=== PATIENT | female | born 1960 | race Caucasian/White ===

== ENCOUNTER 2019-05-26 13:31 | Inpatient (IN) ==
[2019-05-26 15:44] LABS: Bilirubin,Urine Negative (Negative); Blood,Urine Negative (Negative); Clarity,Urine Clear (Clear); Color,Urine Yellow (Yellow); Glucose,Urine (UA) Normal (Normal); Ketones,Urine Negative (Negative); Leukocyte Esterase,Urine Negative (Negative); Nitrite,Urine Negative (Negative); PH,Urine 5.5 pH Units (5.0-8.0); Protein,Urine Negative (Neg-Trace); Specific Gravity,Urine 1.015 (1.010-1.025); Urobilinogen,Urine Normal (Normal)
[2019-05-26 16:19] LABS: Basophils # 0.1 K/mcL (0.0-0.2); Basophils % 1.1 %; Eosinophils # 0.1 K/mcL (0.0-0.6); Eosinophils % 0.6 %; Hematocrit 38.8 % (35.3-44.9); Hemoglobin 13.1 g/dL (11.5-15.4); Immature Granulocytes % 0.8 % (0-4); Lymphocytes # 1.3 K/mcL (0.6-4.6); Lymphocytes % 14.2 %; Mean Corpuscular HGB Conc 33.8 g/dL (31.6-35.5); Mean Corpuscular Hemoglobin 33.5 pg (28.0-33.3); Mean Corpuscular Volume 99.2 fL (83.0-100.0); Mean Platelet Volume 9.4 fL (9.4-12.4); Monocytes # 0.9 K/mcL (0.0-1.3); Monocytes % 9.9 %; Neutrophils # 6.4 K/mcL (1.6-8.9); Platelet Count 224 K/mcL (140-400); Red Blood Count 3.91 M/mcL (3.82-4.97); Red Cell Distribution Width 12.1 % (11.5-14.5); Segmented Neutrophils % 73.4 %; White Blood Count 8.8 K/mcL (4.3-11.1)
[2019-05-26 16:40] LABS: Calcium 9.8 mg/dL (8.6-10.3)
[2019-05-26] MEDS ORDERED: Calcium Gluconate 1,000 MG/10 ML VIAL IVP STA (17:10)
[2019-05-26] MEDS ORDERED: Calcium Gluconate 1gm/50mL 1 GM/50 ML BAG IVPB ONE (17:16)
[2019-05-26] MEDS ORDERED: 0.9 % Sodium Chloride 1,000 ML IVC ONE (17:59)
[2019-05-26] MEDS ORDERED: *HR* Promethazine 25 MG/ML VIAL IVP ONE (19:06)
[2019-05-26 19:15] LABS: Albumin 4.2 g/dL (3.5-5.7); Albumin/Globulin Ratio 1.2 (1.1-2.2); Bilirubin,Direct 0.5 mg/dL (0.0-0.2); Bilirubin,Indirect 0.9 mg/dL (0.0-1.0); Bilirubin,Total 1.4 mg/dL (0.3-1.0); Globulin 3.6 g/dL (2.4-3.5); Total Protein 7.8 g/dL (6.4-8.9)
[2019-05-26] MEDS ORDERED: Naloxone 0.4 MG/ML INJ IVP PRN (19:55)
[2019-05-26] MEDS ORDERED: *HR* Promethazine 25 MG/ML VIAL IVP PRN (19:55)
[2019-05-26] MEDS ORDERED: Bumetanide 1 MG TABLET PO SCH (20:00)
[2019-05-26] MEDS ORDERED: 0.9 % Sodium Chloride 1,000 ML IVC SCH (20:00)
[2019-05-26] MEDS ORDERED: Dextrose Gel 15 GM/37.5 ML TUBE PO PRN ×2 (20:04)
[2019-05-26] MEDS ORDERED: *HR* Dextrose 50 % in Water (Syg) 50 ML SYRINGE IVP PRN (20:04)
[2019-05-26] MEDS ORDERED: D5% in Water 1,000 ML IVC PRN (20:04)
[2019-05-26] MEDS: Insulin LISPRO 300 UNITS/3 ML VIAL SQ SCH (21:22)
[2019-05-26] MEDS: FluocinoNIDE 0.05% CRM 15 GM TUBE TP SCH (22:03)
[2019-05-26] MEDS: *HR* Heparin 5,000 UNIT/ML VIAL SQ SCH (22:05)
[2019-05-26 23:35] LABS: Calcium 9.7 mg/dL (8.6-10.3); Potassium 5.1 mEq/L (3.5-5.1)
[2019-05-27] MEDS: *HR* Heparin 5,000 UNIT/ML VIAL SQ SCH ×2 (04:14→16:45)
[2019-05-27 06:35] LABS: Basophils # 0.1 K/mcL (0.0-0.2); Basophils % 0.6 %; Eosinophils # 0.1 K/mcL (0.0-0.6); Eosinophils % 1.4 %; Immature Granulocytes % 0.5 % (0-4); Lymphocytes # 1.5 K/mcL (0.6-4.6); Lymphocytes % 19.8 %; Mean Corpuscular HGB Conc 32.9 g/dL (31.6-35.5); Mean Corpuscular Hemoglobin 33.5 pg (28.0-33.3); Mean Corpuscular Volume 101.8 fL (83.0-100.0); Mean Platelet Volume 9.7 fL (9.4-12.4); Monocytes # 1.1 K/mcL (0.0-1.3); Monocytes % 14.6 %; Neutrophils # 4.9 K/mcL (1.6-8.9); Platelet Count 161 K/mcL (140-400); Red Blood Count 3.34 M/mcL (3.82-4.97); Red Cell Distribution Width 12.1 % (11.5-14.5); Segmented Neutrophils % 63.1 %; White Blood Count 7.7 K/mcL (4.3-11.1)
[2019-05-27 06:36] LABS: Hemoglobin 11.2 g/dL (11.5-15.4)
[2019-05-27 06:57] LABS: Albumin 3.4 g/dL (3.5-5.7); Albumin/Globulin Ratio 1.2 (1.1-2.2); Bilirubin,Total 1.2 mg/dL (0.3-1.0); Globulin 2.9 g/dL (2.4-3.5); INR 1.1; Magnesium 1.9 mg/dL (1.6-2.6); Potassium 4.1 mEq/L (3.5-5.1); Prothrombin Time 12.7 Seconds (9.4-12.1); Total Protein 6.3 g/dL (6.4-8.9)
[2019-05-27 06:59] LABS: Activated Partial Thrombo Time 28.6 Seconds (26.0-36.0)
[2019-05-27] MEDS: Insulin LISPRO 300 UNITS/3 ML VIAL SQ SCH ×3 (07:25→16:44)
[2019-05-27] MEDS: Aspirin Enteric Coated 81 MG Tablet PO SCH (08:08)
[2019-05-27] MEDS: FluocinoNIDE 0.05% CRM 15 GM TUBE TP SCH ×2 (08:12→19:41)
[2019-05-27] MEDS: Thiamine (B-1) 100 MG TABLET PO SCH (11:04)
[2019-05-27] MEDS: Multivit/Ca/Min/Fe/FA 1 TAB TABLET PO SCH (11:04)
[2019-05-27] MEDS: Folic Acid 1 MG TABLET PO SCH (11:04)
[2019-05-27] MEDS: 0.9 % Sodium Chloride 1,000 ML IVC SCH ×2 (11:33→19:43)
[2019-05-27] MEDS ORDERED: Thiamine (B-1) 100 MG, Folic Acid 1 MG, MVI, adult with vitamin K 10 ML in 0.9 % Sodi... IVPB SCH (18:00)
[2019-05-28] MEDS: *HR* Heparin 5,000 UNIT/ML VIAL SQ SCH (03:55)
[2019-05-28 05:25] LABS: % Iron Saturation 10 % (15-50); Iron 28 mcg/dL (50-170); Transferrin 195 mg/dL (203-362)
[2019-05-28 05:26] LABS: Albumin 3.3 g/dL (3.5-5.7); Calcium 8.8 mg/dL (8.6-10.3); Magnesium 1.6 mg/dL (1.6-2.6); Phosphorous 3.7 mg/dL (2.7-4.5); Potassium 4.2 mEq/L (3.5-5.1)
[2019-05-28 05:49] LABS: Folate 15.6 ng/mL (3.0-16.0)
[2019-05-28] MEDS: Insulin LISPRO 300 UNITS/3 ML VIAL SQ SCH ×2 (08:02→12:12)
[2019-05-28] MEDS: Thiamine (B-1) 100 MG TABLET PO SCH (08:06)
[2019-05-28] MEDS: Multivit/Ca/Min/Fe/FA 1 TAB TABLET PO SCH (08:06)
[2019-05-28] MEDS: FluocinoNIDE 0.05% CRM 15 GM TUBE TP SCH (08:07)
[2019-05-28] MEDS: Folic Acid 1 MG TABLET PO SCH (08:07)
[2019-05-28] MEDS: Aspirin Enteric Coated 81 MG Tablet PO SCH (08:07)
[2019-05-28] MEDS ORDERED: 0.9 % Sodium Chloride 1,000 ML IVC SCH (08:15)
[2019-05-28 12:00] VITALS: BP 142/81
[2019-05-30 09:26] LABS: Serine Protease-3 Antibody 0 AU/mL (0-19)
[2019-05-31 13:11] LABS: ANA HEp-2 IgG IFA <1:80 (<1:80)
[2019-06-01 00:14] LABS: APTT (LE Anticoag) 37 sec (32-48); Diluted Russell Viper Venom 33 sec (33-44); PT (LE-Anticoag) 14.2 sec (12.0-15.5)
== END 2019-05-28 13:08 | disposition home or self-care (01) | DRG 683 ==
LOC: EMEROOARM 13:31 → 2ANU 13:31
PROVIDERS: ADMIT Student in an Organized Health Care Education/Training Program; ATTEND Student in an Organized Health Care Education/Training Program

== ENCOUNTER 2019-07-22 09:35 | Inpatient (IN) ==
[2019-07-22 09:56] LABS: Bilirubin,Urine Negative (Negative); Blood,Urine Negative (Negative); Clarity,Urine Clear (Clear); Color,Urine Yellow (Yellow); Glucose,Urine (UA) Normal (Normal); Ketones,Urine Negative (Negative); Leukocyte Esterase,Urine Negative (Negative); Nitrite,Urine Negative (Negative); Protein,Urine Negative (Neg-Trace); Urobilinogen,Urine Normal (Normal)
[2019-07-22 10:18] LABS: Basophils # 0.2 K/mcL (0.0-0.2); Basophils % 1.8 %; Eosinophils # 0.2 K/mcL (0.0-0.6); Eosinophils % 2.8 %; Hematocrit 32.1 % (35.3-44.9); Hemoglobin 10.6 g/dL (11.5-15.4); Immature Granulocytes % 0.7 % (0-4); Lymphocytes # 2.4 K/mcL (0.6-4.6); Lymphocytes % 27.9 %; Mean Platelet Volume 8.5 fL (9.4-12.4); Monocytes # 0.9 K/mcL (0.0-1.3); Monocytes % 10.8 %; Neutrophils # 4.7 K/mcL (1.6-8.9); Platelet Count 206 K/mcL (140-400); Red Blood Count 3.31 M/mcL (3.82-4.97); Red Cell Distribution Width 14.5 % (11.5-14.5); White Blood Count 8.5 K/mcL (4.3-11.1)
[2019-07-22 10:40] LABS: Alanine Aminotransferase 30 Units/L (7-52); Albumin 2.7 g/dL (3.5-5.7); Albumin/Globulin Ratio 0.8 (1.1-2.2); Alkaline Phosphatase 97 Units/L (34-104); Aspartate Amino Transferase 103 Units/L (13-39); BUN/Creatinine Ratio 17 (6-26); Bilirubin,Total 1.3 mg/dL (0.3-1.0); Blood Urea Nitrogen 19 mg/dL (6-20); Calcium 7.6 mg/dL (8.6-10.3); Carbon Dioxide 27 mEq/L (23-29); Chloride 95 mEq/L (98-107); Globulin 3.6 g/dL (2.4-3.5); Glucose 164 mg/dL (70-105); Osmolality,Calculated 282 (280-300); Potassium 4.1 mEq/L (3.5-5.1); Sodium 133 mEq/L (136-145); Total Protein 6.3 g/dL (6.4-8.9); eGFR For African Americans > 60 (> 60); eGFR For Non-African Americans 50 (> 60)
[2019-07-22 10:42] LABS: Troponin I 0.17 ng/mL (< 0.04)
[2019-07-22] MEDS ORDERED: Aspirin 325 MG TABLET PO ONE (10:44)
[2019-07-22] MEDS ORDERED: Furosemide 40 MG/4 ML VIAL IVP ONE (10:50)
[2019-07-22] MEDS ORDERED: *HR* Heparin 5,000 UNIT/ML VIAL IVP PRN ×2 (11:03)
[2019-07-22] MEDS ORDERED: *HR* Heparin 5,000 UNIT/ML VIAL IVP ONE (11:03)
[2019-07-22] MEDS: Heparin 25,000 UNIT/250 ML D5W 25,000 UNIT/250 ML IV.SOLN IVC SCH (11:22)
[2019-07-22] MEDS ORDERED: Ondansetron 4 MG/2 ML VIAL IVP PRN (11:33)
[2019-07-22] MEDS ORDERED: Naloxone 0.4 MG/ML INJ IVP PRN (11:33)
[2019-07-22] MEDS ORDERED: Dextrose Gel 15 GM/37.5 ML TUBE PO PRN ×2 (11:38)
[2019-07-22] MEDS ORDERED: D5% in Water 1,000 ML IVC PRN (11:38)
[2019-07-22] MEDS ORDERED: *HR* Dextrose 50 % in Water (Syg) 50 ML SYRINGE IVP PRN (11:38)
[2019-07-22 11:40] LABS: Hematocrit 33.9 % (35.3-44.9); Mean Corpuscular HGB Conc 32.4 g/dL (31.6-35.5); Mean Corpuscular Hemoglobin 31.5 pg (28.0-33.3); Mean Corpuscular Volume 97.1 fL (83.0-100.0); Mean Platelet Volume 8.5 fL (9.4-12.4); Platelet Count 206 K/mcL (140-400); Red Blood Count 3.49 M/mcL (3.82-4.97); Red Cell Distribution Width 14.5 % (11.5-14.5)
[2019-07-22 11:44] LABS: Heparin anti-factor XA UFH < 0.04 IU/mL (0.30-0.70); INR 1.2; Prothrombin Time 14.1 Seconds (9.4-12.1)
[2019-07-22 11:47] LABS: Activated Partial Thrombo Time 30.8 Seconds (26.0-36.0)
[2019-07-22] MEDS: metOLazone 5 MG TABLET PO SCH (14:21)
[2019-07-22] MEDS: Insulin LISPRO 300 UNITS/3 ML VIAL SQ SCH ×2 (16:04→21:32)
[2019-07-22] MEDS: atenoloL 50 MG TABLET PO SCH (16:58)
[2019-07-22] MEDS ORDERED: Aspirin Enteric Coated 81 MG Tablet PO SCH (18:00)
[2019-07-22] MEDS: Furosemide 40 MG/4 ML VIAL IVP SCH (22:28)
[2019-07-22] MEDS: Insulin DETEMIR 100 UNIT/ML X5UNITS SQ SCH (22:32)
[2019-07-22] MEDS: hydrALAZINE 25 MG TABLET PO SCH (22:33)
[2019-07-23 01:06] LABS: Hematocrit 31.6 % (35.3-44.9); Hemoglobin 10.6 g/dL (11.5-15.4); Mean Corpuscular HGB Conc 33.5 g/dL (31.6-35.5); Mean Corpuscular Hemoglobin 32.5 pg (28.0-33.3); Mean Corpuscular Volume 96.9 fL (83.0-100.0); Mean Platelet Volume 8.8 fL (9.4-12.4); Platelet Count 203 K/mcL (140-400); Red Blood Count 3.26 M/mcL (3.82-4.97); Red Cell Distribution Width 14.7 % (11.5-14.5); White Blood Count 9.5 K/mcL (4.3-11.1)
[2019-07-23 01:11] LABS: INR 1.3; Prothrombin Time 14.7 Seconds (9.4-12.1)
[2019-07-23 01:23] LABS: BUN/Creatinine Ratio 16 (6-26); Blood Urea Nitrogen 17 mg/dL (6-20); Calcium 7.9 mg/dL (8.6-10.3); Carbon Dioxide 28 mEq/L (23-29); Chloride 97 mEq/L (98-107); Glucose 113 mg/dL (70-105); Magnesium 1.5 mg/dL (1.6-2.6); Osmolality,Calculated 282 (280-300); Potassium 3.7 mEq/L (3.5-5.1); Sodium 135 mEq/L (136-145); eGFR For African Americans > 60 (> 60); eGFR For Non-African Americans 54 (> 60)
[2019-07-23] MEDS: Insulin LISPRO 300 UNITS/3 ML VIAL SQ SCH ×4 (08:21→20:30)
[2019-07-23] MEDS: hydrALAZINE 25 MG TABLET PO SCH ×2 (08:23→20:39)
[2019-07-23] MEDS ORDERED: Fluticasone Propionate Nasal 50 MCG/SPRAY BOTTLE NS PRN (08:59)
[2019-07-23] MEDS: Furosemide 40 MG/4 ML VIAL IVP SCH ×2 (09:29→20:39)
[2019-07-23] MEDS: metOLazone 5 MG TABLET PO SCH (11:28)
[2019-07-23 16:19] LABS: BUN/Creatinine Ratio 14 (6-26); Blood Urea Nitrogen 15 mg/dL (6-20); Calcium 8.1 mg/dL (8.6-10.3); Carbon Dioxide 32 mEq/L (23-29); Chloride 98 mEq/L (98-107); Glucose 138 mg/dL (70-105); Osmolality,Calculated 285 (280-300); Potassium 3.6 mEq/L (3.5-5.1); Sodium 136 mEq/L (136-145); eGFR For African Americans > 60 (> 60); eGFR For Non-African Americans 54 (> 60)
[2019-07-23] MEDS: atenoloL 50 MG TABLET PO SCH (16:45)
[2019-07-23] MEDS: Aspirin Enteric Coated 81 MG Tablet PO SCH (16:45)
[2019-07-23] MEDS: *HR* Heparin 5,000 UNIT/ML VIAL SQ SCH (16:46)
[2019-07-23] MEDS: Insulin DETEMIR 100 UNIT/ML X5UNITS SQ SCH (20:52)
[2019-07-23 23:12] LABS: Calcium 8.5 mg/dL (8.6-10.3); Potassium 3.8 mEq/L (3.5-5.1)
[2019-07-24 04:31] LABS: Basophils # 0.1 K/mcL (0.0-0.2); Eosinophils # 0.2 K/mcL (0.0-0.6); Eosinophils % 2.5 %; Hematocrit 29.8 % (35.3-44.9); Hemoglobin 9.7 g/dL (11.5-15.4); Immature Granulocytes % 0.9 % (0-4); Lymphocytes # 1.7 K/mcL (0.6-4.6); Lymphocytes % 24.9 %; Mean Corpuscular HGB Conc 32.6 g/dL (31.6-35.5); Mean Corpuscular Hemoglobin 32.2 pg (28.0-33.3); Mean Platelet Volume 8.7 fL (9.4-12.4); Monocytes # 1.1 K/mcL (0.0-1.3); Monocytes % 15.7 %; Neutrophils # 3.7 K/mcL (1.6-8.9); Platelet Count 130 K/mcL (140-400); Red Blood Count 3.01 M/mcL (3.82-4.97); White Blood Count 6.8 K/mcL (4.3-11.1)
[2019-07-24 05:03] LABS: BUN/Creatinine Ratio 15 (6-26); Blood Urea Nitrogen 15 mg/dL (6-20); Calcium 7.9 mg/dL (8.6-10.3); Carbon Dioxide 28 mEq/L (23-29); Chloride 99 mEq/L (98-107); Glucose 135 mg/dL (70-105); Magnesium 1.5 mg/dL (1.6-2.6); Osmolality,Calculated 285 (280-300); Phosphorous 2.9 mg/dL (2.7-4.5); Potassium 3.4 mEq/L (3.5-5.1); Sodium 136 mEq/L (136-145); Troponin I 0.08 ng/mL (< 0.04); eGFR For African Americans > 60 (> 60); eGFR For Non-African Americans 56 (> 60)
[2019-07-24] MEDS: *HR* Heparin 5,000 UNIT/ML VIAL SQ SCH ×2 (05:25→17:16)
[2019-07-24] MEDS: metOLazone 5 MG TABLET PO SCH (07:33)
[2019-07-24] MEDS: Insulin LISPRO 300 UNITS/3 ML VIAL SQ SCH ×4 (07:33→20:16)
[2019-07-24] MEDS ORDERED: metOLazone 5 MG TABLET PO SCH (08:00)
[2019-07-24] MEDS: Heparin 25,000 UNIT/250 ML D5W 25,000 UNIT/250 ML IV.SOLN IVC SCH (08:13)
[2019-07-24] MEDS: Furosemide 40 MG/4 ML VIAL IVP SCH ×2 (08:37→20:15)
[2019-07-24] MEDS: hydrALAZINE 25 MG TABLET PO SCH ×2 (08:38→20:15)
[2019-07-24 12:21] LABS: Alanine Aminotransferase 24 Units/L (7-52); Albumin 2.4 g/dL (3.5-5.7); Albumin/Globulin Ratio 0.8 (1.1-2.2); Alkaline Phosphatase 82 Units/L (34-104); Aspartate Amino Transferase 60 Units/L (13-39); Bilirubin,Direct 0.4 mg/dL (0.0-0.2); Bilirubin,Indirect 0.8 mg/dL (0.0-1.0); Bilirubin,Total 1.2 mg/dL (0.3-1.0); Globulin 3.2 g/dL (2.4-3.5); Total Protein 5.6 g/dL (6.4-8.9)
[2019-07-24] MEDS: atenoloL 50 MG TABLET PO SCH (17:16)
[2019-07-24] MEDS: Aspirin Enteric Coated 81 MG Tablet PO SCH (17:17)
[2019-07-24] MEDS: Insulin DETEMIR 100 UNIT/ML X5UNITS SQ SCH (20:30)
[2019-07-25 02:13] LABS: Basophils # 0.2 K/mcL (0.0-0.2); Basophils % 2.3 %; Eosinophils # 0.3 K/mcL (0.0-0.6); Eosinophils % 3.3 %; Hematocrit 30.7 % (35.3-44.9); Hemoglobin 9.6 g/dL (11.5-15.4); Immature Granulocytes % 1.1 % (0-4); Lymphocytes # 2.3 K/mcL (0.6-4.6); Lymphocytes % 30.9 %; Mean Corpuscular HGB Conc 31.3 g/dL (31.6-35.5); Mean Platelet Volume 8.9 fL (9.4-12.4); Monocytes # 1.2 K/mcL (0.0-1.3); Monocytes % 15.9 %; Neutrophils # 3.5 K/mcL (1.6-8.9); Platelet Count 139 K/mcL (140-400); Red Cell Distribution Width 15.2 % (11.5-14.5); Segmented Neutrophils % 46.5 %; White Blood Count 7.6 K/mcL (4.3-11.1)
[2019-07-25 02:33] LABS: Alanine Aminotransferase 23 Units/L (7-52); Albumin 2.5 g/dL (3.5-5.7); Albumin/Globulin Ratio 0.8 (1.1-2.2); Alkaline Phosphatase 86 Units/L (34-104); Aspartate Amino Transferase 50 Units/L (13-39); BUN/Creatinine Ratio 14 (6-26); Bilirubin,Total 1.2 mg/dL (0.3-1.0); Blood Urea Nitrogen 14 mg/dL (6-20); Calcium 8.5 mg/dL (8.6-10.3); Carbon Dioxide 27 mEq/L (23-29); Chloride 101 mEq/L (98-107); Globulin 3.2 g/dL (2.4-3.5); Glucose 66 mg/dL (70-105); Magnesium 1.7 mg/dL (1.6-2.6); Osmolality,Calculated 279 (280-300); Phosphorous 2.7 mg/dL (2.7-4.5); Potassium 3.6 mEq/L (3.5-5.1); Sodium 135 mEq/L (136-145); Total Protein 5.7 g/dL (6.4-8.9); eGFR For African Americans > 60 (> 60); eGFR For Non-African Americans 55 (> 60)
[2019-07-25] MEDS: *HR* Heparin 5,000 UNIT/ML VIAL SQ SCH ×2 (05:15→17:55)
[2019-07-25] MEDS: metOLazone 5 MG TABLET PO SCH (09:18)
[2019-07-25] MEDS: Insulin LISPRO 300 UNITS/3 ML VIAL SQ SCH ×4 (10:18→20:41)
[2019-07-25] MEDS: hydrALAZINE 25 MG TABLET PO SCH ×2 (10:19→20:35)
[2019-07-25] MEDS: Furosemide 40 MG/4 ML VIAL IVP SCH ×2 (10:36→20:36)
[2019-07-25] MEDS: atenoloL 50 MG TABLET PO SCH (17:54)
[2019-07-25] MEDS: Aspirin Enteric Coated 81 MG Tablet PO SCH (17:54)
[2019-07-25] MEDS: Insulin DETEMIR 100 UNIT/ML X5UNITS SQ SCH (20:36)
[2019-07-26] MEDS: *HR* Heparin 5,000 UNIT/ML VIAL SQ SCH ×2 (05:47→17:48)
[2019-07-26 05:50] LABS: Hematocrit 30.7 % (35.3-44.9); Hemoglobin 9.9 g/dL (11.5-15.4); Mean Corpuscular HGB Conc 32.2 g/dL (31.6-35.5); Mean Corpuscular Hemoglobin 32.2 pg (28.0-33.3); Mean Platelet Volume 9.1 fL (9.4-12.4); Platelet Count 141 K/mcL (140-400); Red Blood Count 3.07 M/mcL (3.82-4.97); Red Cell Distribution Width 15.6 % (11.5-14.5)
[2019-07-26 06:10] LABS: BUN/Creatinine Ratio 15 (6-26); Blood Urea Nitrogen 14 mg/dL (6-20); Calcium 8.4 mg/dL (8.6-10.3); Carbon Dioxide 28 mEq/L (23-29); Chloride 101 mEq/L (98-107); Glucose 108 mg/dL (70-105); Osmolality,Calculated 281 (280-300); Potassium 3.8 mEq/L (3.5-5.1); Sodium 135 mEq/L (136-145); eGFR For African Americans > 60 (> 60); eGFR For Non-African Americans > 60 (> 60)
[2019-07-26] MEDS: Insulin LISPRO 300 UNITS/3 ML VIAL SQ SCH ×4 (08:05→20:39)
[2019-07-26] MEDS: hydrALAZINE 25 MG TABLET PO SCH ×2 (09:16→20:38)
[2019-07-26] MEDS: metOLazone 5 MG TABLET PO SCH (09:16)
[2019-07-26] MEDS: Furosemide 40 MG/4 ML VIAL IVP SCH ×2 (10:28→20:45)
[2019-07-26] MEDS: atenoloL 50 MG TABLET PO SCH (17:48)
[2019-07-26] MEDS: Aspirin Enteric Coated 81 MG Tablet PO SCH (17:48)
[2019-07-26] MEDS: Insulin DETEMIR 100 UNIT/ML X5UNITS SQ SCH (20:43)
[2019-07-27] MEDS: *HR* Heparin 5,000 UNIT/ML VIAL SQ SCH ×2 (05:21→17:31)
[2019-07-27 06:02] LABS: Hematocrit 34.1 % (35.3-44.9); Hemoglobin 10.8 g/dL (11.5-15.4); Mean Corpuscular HGB Conc 31.7 g/dL (31.6-35.5); Mean Corpuscular Hemoglobin 31.9 pg (28.0-33.3); Mean Corpuscular Volume 100.6 fL (83.0-100.0); Mean Platelet Volume 9.2 fL (9.4-12.4); Platelet Count 177 K/mcL (140-400); Red Blood Count 3.39 M/mcL (3.82-4.97); Red Cell Distribution Width 15.8 % (11.5-14.5); White Blood Count 7.2 K/mcL (4.3-11.1)
[2019-07-27] MEDS ORDERED: Regadenoson 0.4 MG/5 ML SYRINGE IVP ONE (06:12)
[2019-07-27 06:20] LABS: BUN/Creatinine Ratio 15 (6-26); Blood Urea Nitrogen 14 mg/dL (6-20); Calcium 8.5 mg/dL (8.6-10.3); Carbon Dioxide 25 mEq/L (23-29); Chloride 100 mEq/L (98-107); Glucose 101 mg/dL (70-105); Osmolality,Calculated 279 (280-300); Potassium 3.8 mEq/L (3.5-5.1); Sodium 134 mEq/L (136-145); eGFR For African Americans > 60 (> 60); eGFR For Non-African Americans > 60 (> 60)
[2019-07-27] MEDS: Insulin LISPRO 300 UNITS/3 ML VIAL SQ SCH ×4 (08:45→20:36)
[2019-07-27] MEDS: hydrALAZINE 25 MG TABLET PO SCH ×2 (08:47→20:28)
[2019-07-27] MEDS: metOLazone 5 MG TABLET PO SCH (08:47)
[2019-07-27] MEDS: Furosemide 40 MG/4 ML VIAL IVP SCH ×2 (09:47→17:32)
[2019-07-27 14:35] LABS: Albumin 2.6 g/dL (3.5-5.7); Albumin/Globulin Ratio 0.7 (1.1-2.2); Bilirubin,Direct 0.5 mg/dL (0.0-0.2); Bilirubin,Indirect 0.7 mg/dL (0.0-1.0); Bilirubin,Total 1.2 mg/dL (0.3-1.0); Globulin 3.5 g/dL (2.4-3.5); Total Protein 6.1 g/dL (6.4-8.9)
[2019-07-27] MEDS ORDERED: Furosemide 40 MG TABLET PO SCH (17:00)
[2019-07-27] MEDS: Aspirin Enteric Coated 81 MG Tablet PO SCH (17:31)
[2019-07-27] MEDS: atenoloL 50 MG TABLET PO SCH (18:05)
[2019-07-27] MEDS: Insulin DETEMIR 100 UNIT/ML X5UNITS SQ SCH (20:28)
[2019-07-28 03:52] LABS: Hematocrit 32.6 % (35.3-44.9); Hemoglobin 10.5 g/dL (11.5-15.4); Mean Corpuscular HGB Conc 32.2 g/dL (31.6-35.5); Mean Corpuscular Hemoglobin 31.9 pg (28.0-33.3); Mean Corpuscular Volume 99.1 fL (83.0-100.0); Mean Platelet Volume 9.3 fL (9.4-12.4); Platelet Count 163 K/mcL (140-400); Red Blood Count 3.29 M/mcL (3.82-4.97); Red Cell Distribution Width 15.6 % (11.5-14.5); White Blood Count 7.2 K/mcL (4.3-11.1)
[2019-07-28] MEDS: *HR* Heparin 5,000 UNIT/ML VIAL SQ SCH (04:10)
[2019-07-28 04:12] LABS: BUN/Creatinine Ratio 16 (6-26); Blood Urea Nitrogen 15 mg/dL (6-20); Calcium 8.3 mg/dL (8.6-10.3); Carbon Dioxide 28 mEq/L (23-29); Chloride 102 mEq/L (98-107); Glucose 71 mg/dL (70-105); Osmolality,Calculated 281 (280-300); Potassium 3.5 mEq/L (3.5-5.1); Sodium 136 mEq/L (136-145); eGFR For African Americans > 60 (> 60); eGFR For Non-African Americans 59 (> 60)
[2019-07-28] MEDS: Furosemide 40 MG/4 ML VIAL IVP SCH (05:22)
[2019-07-28] MEDS: Insulin LISPRO 300 UNITS/3 ML VIAL SQ SCH ×2 (08:56→11:59)
[2019-07-28] MEDS: metOLazone 5 MG TABLET PO SCH (09:09)
[2019-07-28] MEDS: hydrALAZINE 25 MG TABLET PO SCH (09:09)
[2019-07-28 11:35] VITALS: BP 100/63
[2019-07-28] MEDS ORDERED: Furosemide 40 MG TABLET PO SCH (17:00)
== END 2019-07-28 12:59 | disposition home or self-care (01) | DRG 280 ==
LOC: EMEROOARM 09:35 → 3BNU 09:35 → SUATTDRO 12:30 → 3BNU 12:30 → SUATTDRO 07-24 14:45
PROVIDERS: ADMIT Student in an Organized Health Care Education/Training Program; ATTEND Family Medicine

== ENCOUNTER 2019-10-09 13:46 | Inpatient (IN) ==
[2019-10-09] MEDS ORDERED: CeFAZolin Syr 2,000MG/20 ML 2,000 MG/20 ML SYRINGE IVPB ONE (14:15)
[2019-10-09] MEDS ORDERED: Ringers Solution, Lactated 1,000 ML IVC SCH ×2 (14:15→17:52)
[2019-10-09] MEDS ORDERED: *HR* OxyCODONE Immed Rel 5 MG TABLET PO PRN ×2 (14:42→17:52)
[2019-10-09] MEDS ORDERED: Ondansetron 4 MG/2 ML VIAL IVP ONE (14:42)
[2019-10-09] MEDS ORDERED: *HR* HYDROmorphone PF 0.5 MG/0.5 ML SYRINGE IVP PRN (14:42)
[2019-10-09] MEDS ORDERED: Ropivacaine/PF 0.5% 30 ML VIAL ONE (15:26)
[2019-10-09] MEDS ORDERED: ROPIVACAINE/PF/NS 0.25% 1 EACH SYRINGE INTRAART ONE (15:26)
[2019-10-09] MEDS ORDERED: Vancomycin 1,000 MG VIAL ONE (15:44)
[2019-10-09] MEDS ORDERED: Ethanol\\Acetic Acid\\Na Ace\\Ben 1,000 ML IRRIG.SOLN IR ONE (15:44)
[2019-10-09 17:38] LABS: Hematocrit 30.5 % (35.3-44.9); Hemoglobin 9.4 g/dL (11.5-15.4)
[2019-10-09] MEDS ORDERED: Fluticasone Propionate Nasal 50 MCG/SPRAY BOTTLE NS PRN (17:52)
[2019-10-09] MEDS ORDERED: Naloxone 0.4 MG/ML INJ IVP PRN (17:52)
[2019-10-09] MEDS ORDERED: *HR* OxyCODONE/APAP 5/325 TABLET PO PRN (17:52)
[2019-10-09] MEDS ORDERED: Sennosides 8.6 MG TABLET PO PRN (17:52)
[2019-10-09] MEDS ORDERED: metOLazone 5 MG TABLET PO PRN (17:52)
[2019-10-09] MEDS ORDERED: Dextrose Gel 15 GM/37.5 ML TUBE PO PRN ×2 (17:52)
[2019-10-09] MEDS ORDERED: MOM Conc 10 ML UD.LIQ PO PRN (17:52)
[2019-10-09] MEDS ORDERED: D5% in Water 1,000 ML IVC PRN (17:52)
[2019-10-09] MEDS ORDERED: *HR* Dextrose 50 % in Water (Vial) 50 ML VIAL IVP PRN (17:52)
[2019-10-09] MEDS ORDERED: Ondansetron 4 MG/2 ML VIAL IVP PRN (17:52)
[2019-10-09] MEDS ORDERED: Aspirin Enteric Coated 81 MG Tablet PO SCH (18:00)
[2019-10-09] MEDS ORDERED: *HR* Enoxaparin 30 MG/0.3 ML SYRINGE SQ SCH (18:00)
[2019-10-09] MEDS ORDERED: atenoloL 50 MG TABLET PO SCH (18:00)
[2019-10-09] MEDS: *HR* Enoxaparin 30 MG/0.3 ML SYRINGE SQ SCH (18:28)
[2019-10-09] MEDS: Insulin LISPRO 300 UNITS/3 ML VIAL SQ SCH (18:40)
[2019-10-09] MEDS ORDERED: Insulin LISPRO 300 UNITS/3 ML VIAL SQ SCH (21:00)
[2019-10-10] MEDS: CeFAZolin 2 GM/120 ML BAG IVPB SCH ×2 (00:28→08:38)
[2019-10-10 02:23] LABS: Hematocrit 28.5 % (35.3-44.9); Hemoglobin 8.9 g/dL (11.5-15.4)
[2019-10-10 02:38] LABS: BUN/Creatinine Ratio 24 (6-26); Blood Urea Nitrogen 21 mg/dL (8-23); Carbon Dioxide 24 mEq/L (23-29); Chloride 102 mEq/L (98-107); Glucose 174 mg/dL (70-105); Osmolality,Calculated 283 (280-300); Potassium 4.8 mEq/L (3.5-5.1); Sodium 133 mEq/L (136-145); eGFR For African Americans > 60 (> 60); eGFR For Non-African Americans > 60 (> 60)
[2019-10-10] MEDS: *HR* Enoxaparin 30 MG/0.3 ML SYRINGE SQ SCH (05:47)
[2019-10-10 07:45] VITALS: BP 107/57
[2019-10-10] MEDS: Insulin LISPRO 300 UNITS/3 ML VIAL SQ SCH (08:38)
[2019-10-10] MEDS ORDERED: *HR* Glimepiride 2 MG TABLET PO SCH (09:00)
== END 2019-10-10 11:05 | disposition home or self-care (01) | DRG 483 ==
LOC: SAMDAY 13:46 → 3NENU 17:51
PROVIDERS: ADMIT Orthopaedic Surgery; ATTEND Orthopaedic Surgery

== ENCOUNTER 2020-12-27 14:11 | Inpatient (IN) ==
[2020-12-27] MEDS ORDERED: Naloxone 0.4 MG/ML INJ IVP PRN (17:17)
[2020-12-27] MEDS ORDERED: Ondansetron 4 MG/2 ML VIAL IVP PRN (17:17)
[2020-12-27] MEDS ORDERED: Acetaminophen 325 MG TABLET PO PRN (17:17)
[2020-12-27 18:26] LABS: Basophils # 0.1 K/mcL (0.0-0.2); Basophils % 1.1 %; Eosinophils # 0.2 K/mcL (0.0-0.6); Eosinophils % 2.1 %; Hemoglobin 7.8 g/dL (11.5-15.4); Immature Granulocytes % 0.9 % (0-4); Lymphocytes # 1.8 K/mcL (0.6-4.6); Lymphocytes % 22.5 %; Mean Corpuscular HGB Conc 31.2 g/dL (31.6-35.5); Mean Corpuscular Hemoglobin 32.4 pg (28.0-33.3); Mean Corpuscular Volume 103.7 fL (83.0-100.0); Mean Platelet Volume 9.3 fL (9.4-12.4); Monocytes # 1.6 K/mcL (0.0-1.3); Monocytes % 19.6 %; Neutrophils # 4.3 K/mcL (1.6-8.9); Platelet Count 128 K/mcL (140-400); Red Blood Count 2.41 M/mcL (3.82-4.97); Red Cell Distribution Width 18.4 % (11.5-14.5); Segmented Neutrophils % 53.8 %
[2020-12-27 18:36] LABS: INR 1.7
[2020-12-27 18:46] LABS: Anisocytosis 1+ (Not Present); Platelet Estimate Decreased (Normal)
[2020-12-27 18:47] LABS: Macrocytosis Present (Not Present)
[2020-12-27 18:48] LABS: Hypochromasia Present (Not Present)
[2020-12-27] MEDS ORDERED: *HR* Dextrose 50 % in Water (Syg) 50 ML SYRINGE IVP PRN (19:32)
[2020-12-27] MEDS ORDERED: D5% in Water 1,000 ML IVC PRN (19:32)
[2020-12-27] MEDS ORDERED: Dextrose Gel 15 GM/37.5 ML TUBE PO PRN ×2 (19:32)
[2020-12-27 19:48] LABS: Albumin 2.8 g/dL (3.5-5.7); Albumin/Globulin Ratio 0.8 (1.1-2.2); Bilirubin,Direct 3.5 mg/dL (0.0-0.2); Bilirubin,Indirect 3.7 mg/dL (0.0-1.0); Bilirubin,Total 7.2 mg/dL (0.3-1.0); Globulin 3.7 g/dL (2.4-3.5); Magnesium 1.5 mg/dL (1.6-2.6); Phosphorous 2.6 mg/dL (2.7-4.5); Potassium 3.5 mEq/L (3.5-5.1); Total Protein 6.5 g/dL (6.4-8.9)
[2020-12-27 20:06] LABS: Hepatitis B Surface Antigen Nonreactive (Nonreactive)
[2020-12-27 20:35] LABS: Hepatitis B Core IgM Nonreactive (Nonreactive)
[2020-12-27 20:36] LABS: Hepatitis A Antibody IgM Nonreactive (Nonreactive); Hepatitis C Virus Antibody Nonreactive (Nonreactive)
[2020-12-27] MEDS: Lactulose Oral Soln 20 GM/30 ML UDC PO SCH (20:36)
[2020-12-27] MEDS: Bumetanide 1 MG/4 ML VIAL IVP SCH (20:38)
[2020-12-27] MEDS: Insulin LISPRO 300 UNITS/3 ML VIAL SUBQ SCH (20:48)
[2020-12-28] MEDS: Albumin 25% 25gram/100mL 25 GM/100 ML IV.SOLN IVPB SCH ×4 (00:11→23:43)
[2020-12-28 02:50] LABS: Monocytes % 22.6 %
[2020-12-28 02:53] LABS: Basophils # 0.1 K/mcL (0.0-0.2); Eosinophils # 0.2 K/mcL (0.0-0.6); Eosinophils % 3.6 %; Hemoglobin 6.1 g/dL (11.5-15.4); Immature Granulocytes % 0.8 % (0-4); Immature Platelets 1.6 % (1.1-6.1); Lymphocytes # 1.5 K/mcL (0.6-4.6); Lymphocytes % 28.9 %; Mean Corpuscular HGB Conc 32.1 g/dL (31.6-35.5); Mean Corpuscular Hemoglobin 33.2 pg (28.0-33.3); Mean Corpuscular Volume 103.3 fL (83.0-100.0); Mean Platelet Volume 9.5 fL (9.4-12.4); Monocytes # 1.2 K/mcL (0.0-1.3); Red Blood Count 1.84 M/mcL (3.82-4.97); Red Cell Distribution Width 18.5 % (11.5-14.5); Segmented Neutrophils % 43.1 %; White Blood Count 5.2 K/mcL (4.3-11.1)
[2020-12-28 02:54] LABS: Neutrophils # 2.2 K/mcL (1.6-8.9); Platelet Count 94 K/mcL (140-400)
[2020-12-28 03:12] LABS: Albumin 2.6 g/dL (3.5-5.7); Bilirubin,Direct 2.6 mg/dL (0.0-0.2); Bilirubin,Indirect 2.6 mg/dL (0.0-1.0); Bilirubin,Total 5.2 mg/dL (0.3-1.0); Calcium 7.7 mg/dL (8.6-10.3); Globulin 2.6 g/dL (2.4-3.5); Magnesium 1.4 mg/dL (1.6-2.6); Potassium 3.3 mEq/L (3.5-5.1); Total Protein 5.2 g/dL (6.4-8.9)
[2020-12-28 03:33] LABS: Folate 5.7 ng/mL (3.0-16.0)
[2020-12-28] MEDS ORDERED: 0.9 % Sodium Chloride 250 ML IVC SCH (07:30)
[2020-12-28] MEDS: Lactulose Oral Soln 20 GM/30 ML UDC PO SCH ×2 (08:24→20:22)
[2020-12-28] MEDS: Bumetanide 1 MG/4 ML VIAL IVP SCH ×2 (10:24→17:50)
[2020-12-28] MEDS: Insulin LISPRO 300 UNITS/3 ML VIAL SUBQ SCH ×4 (10:25→21:12)
[2020-12-28] MEDS: (Bethanechol Chloride [Urecholine] 5 MG Tablet) PO SCH ×2 (14:40→20:23)
[2020-12-28 17:02] LABS: Immature Reticulocyte % 29.5 % (11.0-38.0); Retculocyte # 0.12 M/mcL (0.05-0.10); Reticulocyte % 6.1 % (1.6-2.8)
[2020-12-28 17:26] LABS: Creatinine,Urine 29 mg/dL
[2020-12-29 02:47] LABS: Basophils # 0.1 K/mcL (0.0-0.2); Basophils % 0.9 %; Eosinophils # 0.2 K/mcL (0.0-0.6); Eosinophils % 3.3 %; Hematocrit 21.4 % (35.3-44.9); Hemoglobin 7.2 g/dL (11.5-15.4); Immature Granulocytes % 0.9 % (0-4); Immature Platelets 2.1 % (1.1-6.1); Lymphocytes # 1.1 K/mcL (0.6-4.6); Lymphocytes % 19.9 %; Mean Corpuscular HGB Conc 33.6 g/dL (31.6-35.5); Mean Corpuscular Hemoglobin 33.8 pg (28.0-33.3); Mean Corpuscular Volume 100.5 fL (83.0-100.0); Mean Platelet Volume 9.5 fL (9.4-12.4); Monocytes # 1.2 K/mcL (0.0-1.3); Monocytes % 22.5 %; Neutrophils # 2.9 K/mcL (1.6-8.9); Platelet Count 106 K/mcL (140-400); Red Blood Count 2.13 M/mcL (3.82-4.97); Segmented Neutrophils % 52.5 %; White Blood Count 5.5 K/mcL (4.3-11.1)
[2020-12-29 03:02] LABS: Magnesium 1.6 mg/dL (1.6-2.6); Potassium 3.5 mEq/L (3.5-5.1)
[2020-12-29 03:23] LABS: Anisocytosis 1+ (Not Present); Platelet Estimate Normal (Normal)
[2020-12-29 03:36] LABS: Estimated Average Glucose 80 mg/dl; Hemoglobin A1C 4.4 %
[2020-12-29] MEDS: Bumetanide 1 MG/4 ML VIAL IVP SCH ×2 (08:15→16:02)
[2020-12-29] MEDS: Lactulose Oral Soln 20 GM/30 ML UDC PO SCH ×2 (08:16→20:54)
[2020-12-29] MEDS: Albumin 25% 25gram/100mL 25 GM/100 ML IV.SOLN IVPB SCH ×2 (08:17→16:01)
[2020-12-29] MEDS ORDERED: Ciprofloxacin OPTH Soln 2.5 ML BOTTLE RIGHT EYE SCH (09:00)
[2020-12-29] MEDS: Insulin LISPRO 300 UNITS/3 ML VIAL SUBQ SCH ×3 (17:35→23:41)
[2020-12-29] MEDS: (Bethanechol Chloride [Urecholine] 5 MG Tablet) PO SCH ×2 (23:43→23:44)
[2020-12-30] MEDS: Albumin 25% 25gram/100mL 25 GM/100 ML IV.SOLN IVPB SCH ×3 (00:08→15:34)
[2020-12-30 03:29] LABS: Basophils # 0.1 K/mcL (0.0-0.2); Basophils % 1.3 %; Eosinophils # 0.2 K/mcL (0.0-0.6); Eosinophils % 3.1 %; Hemoglobin 6.6 g/dL (11.5-15.4); Immature Platelets 2.5 % (1.1-6.1); Lymphocytes # 1.5 K/mcL (0.6-4.6); Lymphocytes % 24.8 %; Mean Corpuscular HGB Conc 31.4 g/dL (31.6-35.5); Mean Corpuscular Hemoglobin 31.9 pg (28.0-33.3); Mean Corpuscular Volume 101.4 fL (83.0-100.0); Mean Platelet Volume 9.6 fL (9.4-12.4); Monocytes # 1.5 K/mcL (0.0-1.3); Monocytes % 25.2 %; Neutrophils # 2.7 K/mcL (1.6-8.9); Platelet Count 114 K/mcL (140-400); Red Blood Count 2.07 M/mcL (3.82-4.97); Red Cell Distribution Width 19.7 % (11.5-14.5); Segmented Neutrophils % 44.6 %
[2020-12-30 03:33] LABS: Albumin 3.6 g/dL (3.5-5.7); Albumin/Globulin Ratio 1.7 (1.1-2.2); Bilirubin,Direct 2.5 mg/dL (0.0-0.2); Bilirubin,Indirect 3.1 mg/dL (0.0-1.0); Bilirubin,Total 5.6 mg/dL (0.3-1.0); Calcium 8.3 mg/dL (8.6-10.3); Globulin 2.1 g/dL (2.4-3.5); Magnesium 1.5 mg/dL (1.6-2.6); Potassium 3.2 mEq/L (3.5-5.1); Total Protein 5.7 g/dL (6.4-8.9)
[2020-12-30 04:04] LABS: INR 2.2; Prothrombin Time 25.3 Seconds (9.4-12.1)
[2020-12-30 05:28] LABS: Platelet Estimate Decreased (Normal)
[2020-12-30] MEDS: Insulin LISPRO 300 UNITS/3 ML VIAL SUBQ SCH ×4 (07:24→20:56)
[2020-12-30] MEDS ORDERED: 0.9 % Sodium Chloride 250 ML IVC SCH (07:45)
[2020-12-30] MEDS: Lactulose Oral Soln 20 GM/30 ML UDC PO SCH ×3 (09:32→20:59)
[2020-12-30] MEDS: (Bethanechol Chloride [Urecholine] 5 MG Tablet) PO SCH ×3 (09:33→15:32)
[2020-12-30] MEDS ORDERED: *HR* Propofol 200 MG/20 ML VIAL IVP ONE ×2 (11:18→11:25)
[2020-12-30] MEDS ORDERED: Lidocaine -MPF 2% 5 ML VIAL ONE ×2 (11:18→11:24)
[2020-12-30] MEDS ORDERED: 0.9 % Sodium Chloride 250 ML ONE (12:21)
[2020-12-30 19:59] LABS: Hematocrit 25.7 % (35.3-44.9)
[2020-12-30 20:02] LABS: Hemoglobin 8.3 g/dL (11.5-15.4)
[2020-12-31] MEDS: Albumin 25% 25gram/100mL 25 GM/100 ML IV.SOLN IVPB SCH ×3 (01:13→17:17)
[2020-12-31 07:39] LABS: Hematocrit 25.1 % (35.3-44.9); Hemoglobin 8.1 g/dL (11.5-15.4); Mean Corpuscular HGB Conc 32.3 g/dL (31.6-35.5); Mean Corpuscular Hemoglobin 32.1 pg (28.0-33.3); Mean Corpuscular Volume 99.6 fL (83.0-100.0); Mean Platelet Volume 9.4 fL (9.4-12.4); Platelet Count 104 K/mcL (140-400); Red Blood Count 2.52 M/mcL (3.82-4.97); Red Cell Distribution Width 21.2 % (11.5-14.5); White Blood Count 8.5 K/mcL (4.3-11.1)
[2020-12-31 07:52] LABS: INR 2.3; Prothrombin Time 25.5 Seconds (9.4-12.1)
[2020-12-31 08:01] LABS: Albumin 4.2 g/dL (3.5-5.7); Albumin/Globulin Ratio 2.2 (1.1-2.2); Bilirubin,Indirect 5.2 mg/dL (0.0-1.0); Bilirubin,Total 8.2 mg/dL (0.3-1.0); Calcium 9.2 mg/dL (8.6-10.3); Globulin 1.9 g/dL (2.4-3.5); Magnesium 1.8 mg/dL (1.6-2.6); Potassium 3.5 mEq/L (3.5-5.1); Total Protein 6.1 g/dL (6.4-8.9)
[2020-12-31] MEDS: Insulin LISPRO 300 UNITS/3 ML VIAL SUBQ SCH ×3 (08:10→16:43)
[2020-12-31] MEDS: Lactulose Oral Soln 20 GM/30 ML UDC PO SCH ×2 (08:16→21:47)
[2020-12-31] MEDS: (Bethanechol Chloride [Urecholine] 5 MG Tablet) PO SCH ×3 (08:17→17:17)
[2020-12-31 08:42] LABS: Lymphocytes # 1.5 K/mcL (0.6-4.6); Monocytes # 1.5 K/mcL (0.0-1.3); Neutrophils # 5.4 K/mcL (1.6-8.9)
[2020-12-31 08:43] LABS: Platelet Estimate Slight Decrease (Normal)
[2021-01-01] MEDS: Insulin LISPRO 300 UNITS/3 ML VIAL SUBQ SCH ×5 (00:08→21:12)
[2021-01-01] MEDS: Albumin 25% 25gram/100mL 25 GM/100 ML IV.SOLN IVPB SCH ×4 (00:31→23:46)
[2021-01-01 05:50] LABS: Basophils # 0.1 K/mcL (0.0-0.2); Basophils % 1.2 %; Eosinophils # 0.1 K/mcL (0.0-0.6); Eosinophils % 1.6 %; Hematocrit 25.2 % (35.3-44.9); Hemoglobin 7.9 g/dL (11.5-15.4); Immature Granulocytes % 0.9 % (0-4); Lymphocytes # 1.6 K/mcL (0.6-4.6); Mean Corpuscular HGB Conc 31.3 g/dL (31.6-35.5); Mean Corpuscular Hemoglobin 31.7 pg (28.0-33.3); Mean Corpuscular Volume 101.2 fL (83.0-100.0); Mean Platelet Volume 9.5 fL (9.4-12.4); Monocytes # 1.4 K/mcL (0.0-1.3); Monocytes % 20.4 %; Neutrophils # 3.7 K/mcL (1.6-8.9); Platelet Count 104 K/mcL (140-400); Red Blood Count 2.49 M/mcL (3.82-4.97); Red Cell Distribution Width 21.2 % (11.5-14.5); Segmented Neutrophils % 52.9 %; White Blood Count 6.9 K/mcL (4.3-11.1)
[2021-01-01 05:56] LABS: INR 2.3; Prothrombin Time 25.8 Seconds (9.4-12.1)
[2021-01-01 06:19] LABS: Albumin 4.6 g/dL (3.5-5.7); Albumin/Globulin Ratio 2.6 (1.1-2.2); Bilirubin,Direct 3.3 mg/dL (0.0-0.2); Bilirubin,Indirect 5.9 mg/dL (0.0-1.0); Bilirubin,Total 9.2 mg/dL (0.3-1.0); Calcium 9.5 mg/dL (8.6-10.3); Globulin 1.8 g/dL (2.4-3.5); Potassium 3.5 mEq/L (3.5-5.1); Total Protein 6.4 g/dL (6.4-8.9)
[2021-01-01] MEDS: Lactulose Oral Soln 20 GM/30 ML UDC PO SCH ×3 (08:36→21:14)
[2021-01-01] MEDS: (Bethanechol Chloride [Urecholine] 5 MG Tablet) PO SCH ×3 (08:36→16:30)
[2021-01-01] MEDS: Octreotide 400 MCG in 0.9 % Sodium Chloride 100 ML IVC SCH ×2 (10:27→18:39)
[2021-01-01] MEDS: cefTRIAXone 1,000 MG in 0.9 % Sodium Chloride Mini Bag 100 ML IVPB SCH (18:07)
[2021-01-01 21:41] LABS: Magnesium 1.9 mg/dL (1.6-2.6); Potassium 4.2 mEq/L (3.5-5.1)
[2021-01-02 00:58] LABS: Basophils # 0.1 K/mcL (0.0-0.2); Basophils % 1.2 %; Eosinophils # 0.1 K/mcL (0.0-0.6); Eosinophils % 1.1 %; Hemoglobin 8.4 g/dL (11.5-15.4); Immature Granulocytes % 0.9 % (0-4); Lymphocytes # 1.4 K/mcL (0.6-4.6); Mean Corpuscular HGB Conc 31.1 g/dL (31.6-35.5); Mean Corpuscular Hemoglobin 32.4 pg (28.0-33.3); Mean Corpuscular Volume 104.2 fL (83.0-100.0); Mean Platelet Volume 9.8 fL (9.4-12.4); Monocytes # 1.5 K/mcL (0.0-1.3); Monocytes % 19.6 %; Neutrophils # 4.4 K/mcL (1.6-8.9); Platelet Count 117 K/mcL (140-400); Red Blood Count 2.59 M/mcL (3.82-4.97); Red Cell Distribution Width 21.5 % (11.5-14.5); Segmented Neutrophils % 58.2 %; White Blood Count 7.5 K/mcL (4.3-11.1)
[2021-01-02 01:08] LABS: INR 2.3
[2021-01-02 01:12] LABS: Albumin 4.6 g/dL (3.5-5.7); Albumin/Globulin Ratio 2.3 (1.1-2.2); Bilirubin,Direct 4.4 mg/dL (0.0-0.2); Bilirubin,Indirect 6.7 mg/dL (0.0-1.0); Bilirubin,Total 11.1 mg/dL (0.3-1.0); Calcium 9.6 mg/dL (8.6-10.3); Potassium 3.9 mEq/L (3.5-5.1); Total Protein 6.6 g/dL (6.4-8.9)
[2021-01-02] MEDS: Octreotide 400 MCG in 0.9 % Sodium Chloride 100 ML IVC SCH ×4 (03:09→22:00)
[2021-01-02] MEDS: Lactulose Oral Soln 20 GM/30 ML UDC PO SCH ×3 (08:54→20:59)
[2021-01-02] MEDS: Insulin LISPRO 300 UNITS/3 ML VIAL SUBQ SCH ×4 (08:55→20:53)
[2021-01-02] MEDS: Albumin 25% 25gram/100mL 25 GM/100 ML IV.SOLN IVPB SCH ×2 (09:02→16:07)
[2021-01-02] MEDS: (Bethanechol Chloride [Urecholine] 5 MG Tablet) PO SCH ×3 (10:57→16:17)
[2021-01-02 15:47] LABS: Influenza A PCR Negative (Negative); Influenza B PCR Negative (Negative); Resp. Syncytial Virus PCR Negative (Negative)
[2021-01-02 15:53] LABS: SARS-CoV-2 by PCR (In House) Negative (Negative)
[2021-01-02] MEDS: cefTRIAXone 1,000 MG in 0.9 % Sodium Chloride Mini Bag 100 ML IVPB SCH (17:56)
[2021-01-02] MEDS ORDERED: Lactulose 200 GM, Sodium Chloride IRRigation 700 ML RC ONE (18:30)
[2021-01-03] MEDS: Albumin 25% 25gram/100mL 25 GM/100 ML IV.SOLN IVPB SCH ×3 (00:03→15:24)
[2021-01-03 05:04] LABS: Basophils # 0.1 K/mcL (0.0-0.2); Basophils % 1.2 %; Eosinophils # 0.2 K/mcL (0.0-0.6); Eosinophils % 2.7 %; Hematocrit 25.4 % (35.3-44.9); Immature Granulocytes % 1.5 % (0-4); Lymphocytes # 1.9 K/mcL (0.6-4.6); Lymphocytes % 21.9 %; Mean Corpuscular HGB Conc 31.5 g/dL (31.6-35.5); Mean Corpuscular Hemoglobin 32.4 pg (28.0-33.3); Mean Corpuscular Volume 102.8 fL (83.0-100.0); Mean Platelet Volume 9.9 fL (9.4-12.4); Monocytes # 1.7 K/mcL (0.0-1.3); Monocytes % 19.3 %; Neutrophils # 4.7 K/mcL (1.6-8.9); Platelet Count 127 K/mcL (140-400); Red Blood Count 2.47 M/mcL (3.82-4.97); Segmented Neutrophils % 53.4 %; White Blood Count 8.8 K/mcL (4.3-11.1)
[2021-01-03 05:18] LABS: Albumin 4.9 g/dL (3.5-5.7); Albumin/Globulin Ratio 2.7 (1.1-2.2); Bilirubin,Direct 4.4 mg/dL (0.0-0.2); Bilirubin,Total 10.4 mg/dL (0.3-1.0); Calcium 9.8 mg/dL (8.6-10.3); Globulin 1.8 g/dL (2.4-3.5); Potassium 3.4 mEq/L (3.5-5.1); Total Protein 6.7 g/dL (6.4-8.9)
[2021-01-03 05:27] LABS: INR 2.4; Prothrombin Time 26.7 Seconds (9.4-12.1)
[2021-01-03] MEDS: Lactulose Oral Soln 20 GM/30 ML UDC PO SCH ×3 (09:19→20:42)
[2021-01-03] MEDS: (Bethanechol Chloride [Urecholine] 5 MG Tablet) PO SCH ×3 (09:20→17:07)
[2021-01-03] MEDS: Insulin LISPRO 300 UNITS/3 ML VIAL SUBQ SCH ×4 (09:21→20:42)
[2021-01-03] MEDS: Octreotide 400 MCG in 0.9 % Sodium Chloride 100 ML IVC SCH ×3 (09:21→21:31)
[2021-01-03 16:42] LABS: Total Protein,Peritoneal Fluid 3.2 g/dL
[2021-01-03 16:53] LABS: RBC,Peritoneal Fluid 2000 RBC/mcL
[2021-01-03 17:03] LABS: Appearance of Peritoneal Fl CLOUDY (Clear)
[2021-01-03] MEDS: cefTRIAXone 1,000 MG in 0.9 % Sodium Chloride Mini Bag 100 ML IVPB SCH (17:07)
[2021-01-03 17:50] LABS: Basophils,Peritoneal Fluid 0 %; Eosinophils,Peritoneal Fluid 0 %
[2021-01-03 19:27] VITALS: BP 159/82; PULSE 71; TEMP 98.9; O2SAT 96
[2021-01-06 09:29] LABS: Fluid Source for Albumin ASCITES
== END 2021-01-03 22:40 | disposition short-term general hospital (02) | DRG 433 ==
LOC: 2ANU → SUATTDRO 16:34 → 2ANU 18:15
PROVIDERS: ADMIT Pharmacist; ATTEND Internal Medicine